=== PATIENT | male | born 1955 | race Caucasian/White ===

== ENCOUNTER 2016-07-28 21:36 | Emergency (ER) | payer OTHER, BC ==
[~2016-07-28] VITALS: Ht 175.3 cm; Wt 68.6 kg
[~2016-07-28 21:36] MED LIST: CYCL10TA6 PO; PRLSR20 PO; TRAM-10 PO
[2016-07-28 21:46] VITALS: TEMP 37; Ht 175.3 cm; Wt 68.6 kg
[2016-07-28] MEDS ORDERED: XYLOCAINE 1%/SOD BICARB 20 ML VIAL INFIL ONE (22:00)
[2016-07-28 22:39] VITALS: BP 126/81; PULSE 92; O2SAT 97
--- NOTE | 2016-07-29 01:36 | EMERGENCY ROOM VISIT NOTE ---
ED Visit Note First contact with patient: 21:54 Chief Complaint: Left thumb laceration. History of Present Illness: Mr. Mercado is a 61-year-old white male who ambulates into the ED complaining of a posterior thumb laceration. Patient reports less than an hour ago he was at work at the local [employer] when he accidentally pinched his left thumb between 2 black boards and sustained a laceration over the interphalangeal joint of the left thumb. Prior to arrival at the hospital he did control bleeding but did not wash the wound. Associated with his wound he reports he has a stinging discomfort over the area of the laceration. He rates his discomfort 3/10. His pain is nonradiating. His pain worsens with palpation of the laceration. He has not identified any alleviating factors related to the pain. He has not taken any medications for pain prior to arrival at the hospital. He denies any associated symptoms including any other areas of pain throughout the thumb, thumb weakness/numbness/ tingling. Review of Systems: As noted above in history of present illness. Past Medical History: Cervical disc radiculopathy, spinal stenosis, rib fractures. Current Medications: Prilosec, Flexeril. Allergies to Medications: Prednisone, trazodone. Social History: Patient is currently employed; he feels safe in his home environment; he admits to tobacco use. Tetanus Immunization Status: Patient is on a unsure. Physical Examination: Vital Signs: Date Time Temp Pulse Resp B/P Pulse Ox O2 Delivery O2 Flow Rate FiO2 07/28/16 22:39 92 18 126/81 97 07/28/16 21:46 37.0 96 18 118/72 95 Room Air GENERAL: 61-year-old male in mild distress due to pain, nontoxic-appearing, afebrile and hemodynamically stable. NEUROLOGICAL: Awake, alert and oriented to person, place and time. Answering questions appropriately and following commands. SKIN: Warm, dry and pink. Left Thumb: Over the posterior aspect of the thumb over the interphalangeal joint patient has a C-shaped full-thickness laceration measuring approximately 1.8 cm. No active bleeding. LEFT THUMB: Soft tissue injury as noted above. No gross bony deformity. Mild tenderness over his laceration tenderness over the proximal or distal found. Full range of motion in flexion and extension of the MCP and interphalangeal joint against resistance. Throughout the thumb the skin was warm and pink and capillary refill is brisk. He was able to distinguish light sensations through all dermatomes of the thumb. ED Course: Patient is assessed as noted above. Wound Repair: Complexity: Basic Verbal consent was obtained after the risks and benefits were explained. The skin was prepped with betadine and a sterile field set. Wound edges of the wound was anesthetized with 1.5 ml buffered 1% lidocaine. The wound was explored for foreign bodies and none found. Copious irrigation was performed using sterile saline. With direct pressure the bleeding subsided. Debridement was not performed. The wound edges were approximated using 5-0 Ethilon with 4 simple interrupted sutures. Hemostasis and excellent approximation was achieved. Antibacterial ointment and a sterile dressing applied. Patient was placed in a metal finger splint for swelling. No complications and the patient tolerated the procedure well. Patient was educated about tonight's findings and instructed on his treatment plan; he verbalizes understanding and agreement with this plan. Clinical Impression: Laceration of the left thumb. Disposition: Patient discharged home in stable condition; prior to departure he was reassessed and subjectively reported he was feeling better and was pain- free. Plan: Comfort measures, wound care, and signs of infection were discussed with the patient. Patient was encouraged to follow-up with Workmen's Compensation or return to the ED for any signs of infection and/or suture in independent 12 days.
== END 2016-07-28 22:43 | disposition home or self-care (01) ==
LOC: C.EDB 21:37 → C.EDD 22:43
DX: S61.012A Laceration without foreign body of left thumb without damage to nail, initial encounter (principal); W23.1XXA Caught, crushed, jammed, or pinched between stationary objects, initial encounter; Z79.899 Other long term (current) drug therapy; F17.200 Nicotine dependence, unspecified, uncomplicated